=== PATIENT | female | born 1940 ===

== ENCOUNTER 2016-03-20 17:54 | Emergency (ER) | payer SELFPAY ==
[~2016-03-20] VITALS: Ht 157.5 cm; Wt 63.1 kg
[2016-03-20 17:59] VITALS: BP_SYST 127; BP_SYST 135; BP_DIAS 72; BP_DIAS 80; PULSE 80; PULSE 82; RESP 15; RESP 17; TEMP 98.1; TEMP 98.9; O2SAT 94; O2SAT 98
== END 2016-03-20 20:45 | disposition left against medical advice (07) ==
LOC: NED 17:54
DX: J98.9 Respiratory disorder, unspecified (principal)
CPT/HCPCS: 99281